=== PATIENT | female | born 1990 | race Two or more races ===

== ENCOUNTER 2019-12-04 11:59 | Inpatient (IN) | payer BC ==
[2019-12-02 10:50] LABS: Eosinophils # (auto) 0.2 10 ^3/uL (0-0.8); Hemoglobin 12.3 g/dL (12.2-16.2); Lymphocytes # (auto) 1.9 10 ^3/uL (0.4-5.4); Lymphocytes % (auto) 24.2 % (10.0-50.0); Monocytes # (auto) 0.6 10 ^3/uL (0-1.3)
[2019-12-02 10:53] LABS: Basophils # (auto) 0 10 ^3/uL (0-0.2); Basophils % (auto) 0.5 % (0.0-2.0); Eosinophils % (auto) 2.9 % (0.0-7.0); Mean Corpuscular Hemoglobin 24.9 pg (28.0-32.0); Mean Corpuscular Hgb Conc. 32.5 g/dL (32.0-36.0); Mean Corpuscular Volume 76.7 fL (80.0-100.0); Monocytes % (auto) 7.8 % (0.0-12.0); Neutrophils % (auto) 64.6 % (37.0-80.0); Platelet Count (auto) 292 10^3/uL (140-450); Red Blood Cells 4.95 10^6/uL (4.0-5.20); Red Cell Distribution Width 15.6 % (11.8-14.3); White Blood Cell 7.7 10^3/uL (4.4-10.8)
[2019-12-02 10:56] LABS: Urine Bacteria NONE SEEN /hpf (None Seen); Urine Blood TRACE /uL (Negative); Urine Mucus FEW (None Seen); Urine Specific Gravity 1.024 (1.001-1.035); Urine WBC 1 /hpf (0 - 5)
[2019-12-02 11:06] LABS: INR 0.97 (0.9-1.15)
[2019-12-02 11:08] LABS: Albumin 3.4 g/dL (3.4-5.0); Calcium 8.6 mg/dL (8.5-10.1); Potassium 3.7 mmol/L (3.5-5.1)
[2019-12-02 11:11] LABS: Bilirubin, Total 0.2 mg/dL (0.2-1.0); Total Protein 7.6 g/dL (6.4-8.2)
[~2019-12-04] VITALS: Ht 160 cm; Wt 136.0 kg
[2019-12-04] MEDS: BUPIVACAINE 0.25% INJ 50ML VIAL ONE ×2 (12:17→15:45)
[2019-12-04] MEDS: LIDOCAINE W/ EPINEPHRINE 1% 20ML VIAL ONE ×2 (12:17→15:45)
[2019-12-04] MEDS ORDERED: METHYLENE BLUE 0.5% 5MG/ML 10ml AMP IV ONE (12:17)
[2019-12-04] MEDS ORDERED: MIDAZOLAM HCL 1MG/1ML-2 ML VIAL ONE (12:27)
[2019-12-04] MEDS ORDERED: HYDROmorphone HCL 2 MG/ML VL ONE (12:27)
[2019-12-04] MEDS ORDERED: fentaNYL CITRATE 100 MCG/2 ML VL ONE ×2 (12:27→14:22)
[2019-12-04] MEDS ORDERED: ROCURONIUM 10MG/ML 10ML VIAL IV ONE (12:28)
[2019-12-04] MEDS ORDERED: LIDOCAINE HCL 100 MG/5ML (2%) SYRG INJ IV ONE (12:28)
[2019-12-04] MEDS ORDERED: HYDROCORTISONE SOD SUCC 100 MG/2ML INJ VIAL ONE (12:28)
[2019-12-04] MEDS ORDERED: PROPOFOL 10 MG/ML 20 ML IV ONE (12:28)
[2019-12-04] MEDS ORDERED: KETOROLAC TROMETH 30 MG/ML 1ML VIAL ONE (12:28)
[2019-12-04] MEDS ORDERED: GLYCOPYRROLATE 0.2 MG/ML 1ML VIAL ONE ×2 (12:28→14:24)
[2019-12-04] MEDS ORDERED: ceFAZolin 1GM/50ML 0 ML IV ONE (12:55)
[2019-12-04] MEDS ORDERED: ceFAZolin 1GM VL ONE (13:39)
[2019-12-04] MEDS ORDERED: NEOSTIGMINE 1 MG/ML INJ (10mg/10ML VIAL) ONE (14:24)
[2019-12-04] MEDS ORDERED: MORPHINE SULFATE 4 MG/ML SYR/VIAL IV PRN ×2 (16:00→16:15)
[2019-12-04] MEDS ORDERED: ceFAZolin 1GM/50ML 50 ML IV ONE (16:00)
[2019-12-04] MEDS ORDERED: HYDROcodone-ACET 10/325MG TAB PO PRN (16:00)
[2019-12-04] MEDS ORDERED: MORPHINE SULF INJ 2 MG/ML SYRINGE 1ML IV PRN (16:00)
[2019-12-04] MEDS ORDERED: NITROGLYCERIN 0.4 MG SL TAB SL PRN (16:00)
[2019-12-04] MEDS ORDERED: ACETAMINOPHEN 500 MG TAB PO PRN (16:00)
[2019-12-04] MEDS ORDERED: HYDROmorphone HCL 2 MG/ML VL IV PRN (16:15)
[2019-12-04] MEDS ORDERED: ONDANSETRON HCL 4 MG/2 ML VIAL IV PRN (16:15)
[2019-12-04] MEDS: SODIUM CHLORIDE 0.9% 1,000 ML IV SCH (17:57)
[2019-12-04] MEDS: ONDANSETRON HCL 4 MG/2 ML VIAL IV PRN ×2 (18:05→22:09)
[2019-12-04] MEDS: MORPHINE SULF INJ 2 MG/ML SYRINGE 1ML IV PRN ×2 (18:05→22:09)
--- NOTE | 2019-12-04 19:30 | NUR ---
Opening shift note Assumed care of patient from day shift RN. Patient A&Ox4, respirations even and non-labored with no s/s of distress. Discussed POC with patient who verbalized understanding. IVs flushed, patent and intact. Noted five abdominal incision dressings which were CDI. Abdominal binder in place. Cooley draining 100 ml of cloudy yellow urine. Santy hose applied. Discussed splinting while coughing and deep breathing exercises. Bed lowered/locked with 2 side rails up, call light within reach. Will continue to monitor Q1hr and PRN.
[2019-12-04 22:00] VITALS: BP 123/69
--- NOTE | 2019-12-04 22:15 | NUR ---
Pain Patient c/o 9/10 abdominal pain. Administered morphine 2mg per EMAR. Will continue to monitor.
--- NOTE | 2019-12-04 22:30 | NUR ---
Pain reassessed Patient stated that her pain level was a 4/10 and that she felt much better after we repositioned her abdominal binder after the Morphine administration. She stated a 4/10 pain level was tolerable at this time. Will continue to monitor.
--- NOTE | 2019-12-04 23:30 | NUR ---
SCD machine applied Patient requested that her PRECIOUS hose be removed earlier in the shift. Removed PRECIOUS hose as requested, reapplied SCD leggings and attached SCD machine. Patient tolerated well, stating that it felt much better.
[2019-12-05] MEDS: ONDANSETRON HCL 4 MG/2 ML VIAL IV PRN (02:28)
[2019-12-05] MEDS: MORPHINE SULF INJ 2 MG/ML SYRINGE 1ML IV PRN ×3 (02:28→15:24)
--- NOTE | 2019-12-05 02:40 | NUR ---
Pain Patient c/o 7/10 abdominal pain. Administered Morphine 2 mg per EMAR will continue to monitor.
--- NOTE | 2019-12-05 03:00 | NUR ---
Pain reassessed Patient resting with eyes closed, respirations even and non-labored with no s/s of distress. Will continue to monitor.
[2019-12-05] MEDS: SODIUM CHLORIDE 0.9% 1,000 ML IV SCH ×3 (03:45→15:48)
[2019-12-05 05:00] VITALS: BP 118/64
[2019-12-05 06:23] LABS: Basophils # (auto) 0 10 ^3/uL (0-0.2); Basophils % (auto) 0.1 % (0.0-2.0); Eosinophils # (auto) 0 10 ^3/uL (0-0.8); Lymphocytes # (auto) 0.7 10 ^3/uL (0.4-5.4); Neutrophils % (auto) 87.9 % (37.0-80.0)
[2019-12-05 06:26] LABS: Hematocrit 33.7 % (36.0-46.0); Hemoglobin 11.1 g/dL (12.2-16.2); Lymphocytes % (auto) 5.9 % (10.0-50.0); Mean Corpuscular Hemoglobin 25.4 pg (28.0-32.0); Mean Corpuscular Hgb Conc. 33.1 g/dL (32.0-36.0); Mean Corpuscular Volume 76.7 fL (80.0-100.0); Monocytes # (auto) 0.7 10 ^3/uL (0-1.3); Monocytes % (auto) 6.1 % (0.0-12.0); Neutrophils # (auto) 10.4 10 ^3/uL (1.6-8.6); Platelet Count (auto) 267 10^3/uL (140-450); Red Blood Cells 4.39 10^6/uL (4.0-5.20); Red Cell Distribution Width 15.5 % (11.8-14.3); White Blood Cell 11.8 10^3/uL (4.4-10.8)
[2019-12-05] MEDS ORDERED: KETOROLAC TROMETH 30 MG/ML 1ML VIAL IV ONE (07:00)
--- NOTE | 2019-12-05 07:17 | NUR ---
Closing shift note Patient A&Ox4, no SOB or s/s of distress. Patient stated that she felt much better and rated her pain at 4/10 which was tolerable. Endorsed care to day shift primary care RN.
--- NOTE | 2019-12-05 08:00 | NUR ---
AWAKE ALERT ORIENTED TIMES 4 NO SIGNS OF DISTRESS. DC NAYAN AMBULATED TO ROOM 298 AND BACK TO HER ROOM WITH STESDY GAIT AND NO SIGNS OF DISTRESS.
--- NOTE | 2019-12-05 08:49 | NUR ---
REPORT GIVEN TO AMY Kidd
--- NOTE | 2019-12-05 08:50 | NUR ---
Assumed care of patient Assumed care of patient after receiving report from Shavon Enamorado RN. Patient awake and alert. Respirations are even and unlabored. No S/S of distress/SOB or pain. This nurse noted 5 dressings to abdomen; all dressings are C/D/I. Abdominal binder is in place. Patient reported passing gas this morning. Can ambulate independently. Bed is low, locked with 2x rails up. Call light is within reach. Instructed on POC and to call for assist PRN, will continue to monitor for changes Q1hr and PRN.
[2019-12-05 09:00] VITALS: BP 109/56
--- NOTE | 2019-12-05 10:51 | NUR ---
Pain Patient reporting 7/10 abdominal pain on adult pain scale. Medicated per MD order. Bed is low, locked with 2x side rails up. Call light is within reach. Will reassess.
--- NOTE | 2019-12-05 11:22 | NUR ---
RE: Pain Upon reassessment patient reported pain at 0/10 on adult pain scale. Patient resting comfortably at this time. Bed is low, locked with 2x side rails up. Call light is within reach. Will continue to monitor.
[2019-12-05 13:06] VITALS: BP 105/51
[2019-12-05 13:57] VITALS: BP 105/51
--- NOTE | 2019-12-05 15:54 | NUR ---
Reassessment: Pain Upon reassessment patient reported pain at 5/10 on adult pain scale. Patient stated that she is comfortable at this time. Bed is low, locked with 2x side rails up. Call light is within reach. Will continue to monitor.
--- NOTE | 2019-12-05 16:33 | NUR ---
Discharge instructions given as ordered. Encourage to follow up with PMD as instructed. All questions and concerns addressed. Patient verbalized understanding. IV removed with catheter intact, pressure dressing applied. Patient taken to vehicle via wheelchair with all personal belongings, accompanied by staff. No distress noted at time of departure.
== END 2019-12-05 16:30 | disposition home or self-care (01) | DRG 743 ==
LOC: SUR 11:59 → WEST WING 17:00
PROVIDERS: ADMIT Obstetrics & Gynecology; ATTEND Obstetrics & Gynecology
PROC: 0UT74ZZ Resection of Bilateral Fallopian Tubes, Percutaneous Endoscopic Approach (ICD-10-PCS; 2019-12-04)
PROC: 8E0W4CZ Robotic Assisted Procedure of Trunk Region, Percutaneous Endoscopic Approach (ICD-10-PCS; 2019-12-04)
PROC: 0UT94ZL Resection of Uterus, Supracervical, Percutaneous Endoscopic Approach (ICD-10-PCS; principal; 2019-12-04 12:54)
DX: N73.6 Female pelvic peritoneal adhesions (postinfective) (principal); Z90.711 Acquired absence of uterus with remaining cervical stump
CPT/HCPCS: 36415; 80053; 81001; 84702; 85025; 85610; 85730; 86850; 86900; 86901; 87086; G0378; J0690; J1885; J2250; J2405; J2704; J3490